=== PATIENT | female | born 1975 | race Two or more races ===

== ENCOUNTER 2023-07-16 06:46 | Day surgery (SDC) | payer OTHER ==
[2023-07-14 10:12] LABS: HEMATOCRIT 39.4 % (36.0-45.00); HEMOGLOBIN 13.6 g/dL (12.0-15.00); MEAN CELL VOLUME 90.7 fL (80.00-100.00); MEAN CORPUSCULAR HEMOGLOBIN 31.5 pg (27.00-32.0); MEAN CORPUSCULAR HGB CONC 34.7 g/dl (32.0-36.0); PLATELET COUNT 227 K/uL (150-450); RED BLOOD COUNT 4.34 M/uL (4.00-6.00); RED CELL DISTRIBUTION WIDTH 14.6 % (11.5-14.5)
[2023-07-14 10:14] LABS: URINE APPEARANCE Clear; URINE BILIRRUBIN Negative (NEGATIVE); URINE BLOOD NHT; URINE COLOR Yellow; URINE GLUCOSE Negative (NEGATIVE); URINE LEUKOCYTE Negative; URINE NITRATE Negative; URINE PROTEIN Negative (NEGATIVE); URINE UROBILINOGEN 0.2 E.U./dl
[2023-07-14 10:19] LABS: URINE BACTERIA 124.6 uL (0.0-1933); URINE EPITHELIAL CELLS 9.5 uL (0.0-38.8); URINE RBC 8.4 uL (0.0-20.8); URINE WBC 1.8 uL (0.0-23.2)
[2023-07-14 10:38] LABS: ALBUMIN 3.7 gm/dL (3.4-5.0); BILIRUBIN TOTAL 0.48 mg/dL (0.3-1.2); CALCIUM 9.2 mg/dL (8.5-10.1); CREATININE SERUM 0.66 mg/dL (0.55-1.02); GFR 96.85; GLOBULINA 3.1 G/DL (2.4-3.5); POTASSIUM 3.84 mEq/L (3.5-5.1); TOTAL PROTEIN 6.8 gm/dL (6.4-8.2)
[2023-07-14 10:39] LABS: INR 0.96; PARTIAL THROMBOPLASTIN TIME 28.6 SECONDS (22.0-34.0); PROTHROMBIN TIME 10.1 SECONDS (9.0-11.5)
[~2023-07-16 06:46] MED LIST: DYMISTA NASAL S23 GM NS
[2023-07-16] MEDS ORDERED: CEFAZOLIN SODIUM 1,000 MG VIAL ONE (11:09)
[2023-07-16] MEDS ORDERED: CHLORHEXIDINE GLUCONATE 120 ML BOTTLE TOP ONE ×2 (12:27→13:30)
[2023-07-16] MEDS ORDERED: CEFAZOLIN SODIUM 1,000 MG VIAL IV ONE (13:30)
== END 2023-07-16 16:45 | disposition home or self-care (01) ==
LOC: CIR.AMB 06:46
PROVIDERS: ATTEND Surgery
DX: D48.62 Neoplasm of uncertain behavior of left breast (principal); N60.82 Other benign mammary dysplasias of left breast; N60.22 Fibroadenosis of left breast; D24.2 Benign neoplasm of left breast